=== PATIENT | female | born 1965 | race Two or more races ===

== ENCOUNTER 2017-10-26 11:09 | Inpatient (IN) | payer OTHER ==
[2017-10-26 11:40] VITALS: BMI 22.7
--- NOTE | 2017-10-26 13:39 | HP ---
CIWA Score - CIWA Score Nausea/Vomitin-Mild Nausea/No Vomiting Muscle Tremors: 4-Moderate,w/Arms Extend Anxiety: 4-Mod. Anxious/Guarded Agitation: 4-Moderately Restless Paroxysmal Sweats: 1-Minimal Palms Moist Orientation: 0-Oriented Tacttile Disturbances: 1-Very Mild Itch/Numbness Auditory Disturbances: 0-None Visual Disturbances: 0-None Headache: 2-Mild CIWA-Ar Total Score: 17 Admission ROS S - HPI Chief Complaint: withdrawal sx Allergies/Adverse Reactions: Allergies Allergy/AdvReac Type Severity Reaction Status Date / Time No Known Allergies Allergy Verified 10/26/17 12:14 History of Present Illness: 52 years old female with long history of alcohol xanax nicotine dependence has pulmonary sarcoridodisis and depression is admitted to detox Exam Limitations: No Limitations - Ebola screening Have you traveled outside of the country in the last 21 days: No Have you had contact with anyone from an Ebola affected area: No Have you been sick,other than usual withdrawal symptoms: No Do you have a fever: No - Review of Systems Constitutional: Changes in sleep, Weight Stable EENT: reports: Blurred Vision (eye glasses) Respiratory: reports: SOB with Exertion, Productive cough (greenish) Cardiac: reports: No Symptoms Reported GI: reports: Nausea, Poor Fluid Intake, Indigestion, Abdominal cramping : reports: No Symptoms Reported Musculoskeletal: reports: Back Pain, Joint Pain, Muscle Pain, Neck Pain Integumentary: reports: No Symptoms Reported Neuro: reports: Seizure (2012 xanax withdraal related), Tremors Endocrine: reports: No Symptoms Reported Hematology: reports: No Symptoms Reported Psychiatric: reports: Judgement Intact, Orientated x3, Depressed Other Systems: Reviewed and Negative Patient History - Patient Medical History Hx Anemia: No Hx Asthma: No Hx Chronic Obstructive Pulmonary Disease (COPD): Yes Hx Cancer: No Hx Cardiac Disorders: No Hx Congestive Heart Failure: No Hx Hypertension: No Hx Hypercholesterolemia: No Hx Pacemaker: No HX Cerebrovascular Accident: No Hx Seizures: Yes (2012) Hx Dementia: No Hx Diabetes: No Hx Gastrointestinal Disorders: Yes Hx Liver Disease: No Hx Genitourinary Disorders: No Hx Sexually Transmitted Disorders: Yes (syphyllis 1982) Hx Renal Disease (ESRD): No Hx Thyroid Disease: No Hx Human Immunodeficiency Virus (HIV): No Hx Hepatitis C: No Hx Depression: Yes Hx Suicide Attempt: Yes (last attempt was 2008, O/D on xanax) Hx Bipolar Disorder: No Hx Schizophrenia: No - Patient Surgical History Past Surgical History: Yes Hx Neurologic Surgery: No Hx Cataract Extraction: No Hx Cardiac Surgery: No Hx Lung Surgery: No Hx Breast Surgery: No Hx Breast Biopsy: No Hx Abdominal Surgery: No Hx Appendectomy: No Hx Cholecystectomy: No Hx Genitourinary Surgery: No Hx Section: No Hx Orthopedic Surgery: Yes (left tib and fib fracture 1986) Hx Hysterectomy: Yes (2015) Anesthesia Reaction: No - PPD History Previous Implant?: Yes (mar 2017) Documented Results: Negative w/o proof Implanted On Prior R Admission?: No PPD to be Administered?: Yes - Reproductive History Patient is a Female of Child Bearing Age (11 -55 yrs old): Yes Last Menstrual Period: 08/06/15 Patient : No - Smoking Cessation Smoking history: Current every day smoker Have you smoked in the past 12 months: Yes Aproximately how many cigarettes per day: 20 Cigars Per Day: 0 Hx Chewing Tobacco Use: No Initiated information on smoking cessation: Yes 'Breaking Loose' booklet given: 10/26/17 - Substance & Tx. History Hx Alcohol Use: Yes Hx Substance Use: Yes Substance Use Type: Alcohol, Tranquilizers Hx Substance Use Treatment: Yes (12/2016) - Substances Abused Alprazolam (Xanax) Route: Oral Frequency: Daily Amount used: 4-6 mg daily Age of first use: 40 Date of Last Use: 10/26/17 Alcohol Route: Oral Frequency: Daily Amount used: 1 oint daily ([facility]) Age of first use: 13 Date of Last Use: 10/26/17 Family Disease History - Family Disease History Family Disease History: [place]: Mother (), Other: Father (), Mother Admission Physical Exam [facility] - Vital Signs Vital Signs: Vital Signs - 24 hr 10/26/17 11:31 Temperature 97.1 F L Pulse Rate 82 Respiratory 20 Rate Blood Pressure 112/78 - Physical General Appearance: Yes: Nourished, Moderate Distress, Tremorous, Irritable, Sweating, Anxious HEENTM: Yes: Hearing grossly Normal, Normal ENT Inspection, Normocephalic, Normal Voice Respiratory: Yes: Chest Non-Tender, No Respiratory Distress, No Accessory Muscle Use, Wheezing, Inspiration Neck: Yes: Supple, Trachea in good position Breast: Yes: Breasts Symetrical, No Discharge Cardiology: Yes: Regular Rhythm, Regular Rate, S1, S2 Abdominal: Yes: Normal Bowel Sounds, Non Tender, Soft Genitourinary: Yes: Within Normal Limits Back: Yes: Normal Inspection Musculoskeletal: Yes: full range of Motion, Gait Steady, Back pain, Muscle Pain Extremities: Yes: Normal Inspection, Normal Range of Motion, Non-Tender, Tremors Neurological: Yes: Fully Oriented, Alert, Motor Strength 5/5, Normal Response, Depressed Affect Integumentary: Yes: Warm Lymphatic: Yes: Within Normal Limits - Diagnostic (1) Alcohol dependence with uncomplicated withdrawal Current Visit: Yes Status: Acute (2) Sedative, hypnotic or anxiolytic dependence with withdrawal, uncomplicated Current Visit: Yes Status: Acute (3) Pulmonary sarcoidosis Current Visit: Yes Status: Chronic (4) Nicotine dependence Current Visit: Yes Status: Acute Qualifiers: Nicotine product type: cigarettes Substance use status: in withdrawal Qualified Code(s): F17.213 - Nicotine dependence, cigarettes, with withdrawal (5) Dry skin dermatitis Current Visit: Yes Status: Chronic (6) GERD (gastroesophageal reflux disease) Current Visit: Yes Status: Chronic Qualifiers: Esophagitis presence: without esophagitis Qualified Code(s): K21.9 - Gastro -esophageal reflux disease without esophagitis (7) Depression (emotion) Current Visit: Yes Status: Suspected Qualifiers: Depression Type: dysthymia Qualified Code(s): F34.1 - Dysthymic disorder Cleared for Admission [facility] - Detox or Rehab [facility] Level of Care: Medically Managed Detox Regimen/Protocol: Valium [facility] Breath Alcohol Content Breath Alcohol Content: 0 Urine Pregancy Test - Result Urine Test Results: Negative- NO Line Present Urine Drug Screen - Results Drug Screen Negative: No Urine Drug Screen Results: AMP-Amphetamines, BZO-Benzodiazepines
[2017-10-26] MEDS ORDERED: MAG HYDROX/AL HYDROX/SIMETH 30 ML UNIT-DOSE CUP PO PRN (13:54)
[2017-10-26] MEDS ORDERED: LOPERAMIDE HCL 2 MG CAPSULE PO PRN (13:54)
[2017-10-26] MEDS ORDERED: P-EPHED 60MG/TRIPROLIDI 2.5MG TABLET PO PRN (13:54)
[2017-10-26] MEDS ORDERED: MAGNESIUM CITRATE 300 ML BOTTLE PO PRN (13:54)
[2017-10-26] MEDS ORDERED: guaiFENesin/D-METHORPHAN HB 10 ML UNIT-DOSE CUPS PO PRN (13:54)
[2017-10-26] MEDS ORDERED: diazePAM 5 MG TABLET PO PRN (13:54)
[2017-10-26] MEDS ORDERED: MAGNESIUM HYDROX 2400MG/30ML ORAL SUSPENSION 30 ML CUP PO PRN (13:54)
[2017-10-26] MEDS ORDERED: MENTHOL/PHENOL 1 EACH UD MM PRN (13:54)
[2017-10-26] MEDS ORDERED: ACETAMINOPHEN 325 MG TABLET (FP) PO PRN (13:54)
[2017-10-26] MEDS ORDERED: NICOTINE POLACRILEX 4 MG GUM BC PRN (13:54)
[2017-10-26] MEDS ORDERED: COLLOIDAL OATMEAL 1 BAR EACH TP PRN (14:00)
[2017-10-26] MEDS ORDERED: diazePAM 5 MG TABLET PO ONE (15:30)
[2017-10-26] MEDS: NICOTINE 21 MG/24 HOURS TOPICAL PATCH TD SCH (16:06)
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
[2017-10-26] MEDS ORDERED: MELATONIN 5 MG TABLETS PO PRN (22:00)
[2017-10-26] MEDS: THIAMINE HCL 100 MG TABLET (FP) PO SCH (22:48)
[2017-10-26] MEDS: RANITIDINE HCL 150 MG TABLET (FP) PO SCH (22:49)
[2017-10-26] MEDS: diazePAM 5 MG TABLET PO SCH (22:49)
[2017-10-26] MEDS: OLANZapine 10 MG TABLET PO SCH (22:50)
[2017-10-26] MEDS: MINERAL OIL/PETROLAT/WATER TOPICAL CREAM 113 GM JAR TP SCH (22:56)
[2017-10-27] MEDS: diazePAM 5 MG TABLET PO SCH ×3 (06:29→22:30)
--- NOTE | 2017-10-27 09:28 | EKG ---
Test Reason : Blood Pressure : / mmHG Vent. Rate : 068 BPM Atrial Rate : 068 BPM P-R Int : 154 ms QRS Dur : 080 ms QT Int : 414 ms P-R-T Axes : 062 068 058 degrees QTc Int : 440 ms NORMAL SINUS RHYTHM NORMAL ECG NO PREVIOUS ECGS AVAILABLE Confirmed by ELEAZAR ARRIETA, JANINA ([id number]) on 10/27/2017 9:28:20 AM Referred By: Confirmed By:JANINA BUSH MD
[2017-10-27 09:56] LABS: HEMATOCRIT 39.4 % (32.4-45.2); HEMOGLOBIN 13.4 GM/dL (10.7-15.3); MCH 30.5 pg (25.7-33.7); MCHC 34.1 g/dl (32.0-36.0); MEAN CELL VOLUME 89.4 fl (80-96); MEAN PLT VOLUME 9.5 fl (7.5-11.1); PLATELET COUNT 237 K/MM3 (134-434); RDW 12.8 % (11.6-15.6); WHITE BLOOD COUNT 5.4 K/mm3 (4.0-10.0)
[2017-10-27 10:05] LABS: CHLORIDE 106 mmol/L (98-107); POTASSIUM 3.8 mmol/L (3.5-5.1); SODIUM 142 mmol/L (136-145)
[2017-10-27 10:23] LABS: ALBUMIN 3.6 g/dl (3.4-5.0); ALK PHOS 48 U/L (45-117); ANION GAP 8 (8-16); BILIRUBIN,TOTAL 0.3 mg/dL (0.2-1.0); BLOOD UREA NITROGEN 12 mg/dL (7-18); CALCIUM 8.9 mg/dL (8.5-10.1); CO2 28 mmol/L (21-32); CREATININE 0.8 mg/dL (0.55-1.02); GLUCOSE,RANDOM 76 mg/dL (74-106); SGOT/AST 22 U/L (15-37); SGPT/ALT 26 U/L (12-78); TOT PROT 6.6 g/dl (6.4-8.2)
[2017-10-27] MEDS: NICOTINE 21 MG/24 HOURS TOPICAL PATCH TD SCH (11:17)
[2017-10-27] MEDS: PRENATAL VITAMINS W/ FOLIC ACID TABLET (FP) PO SCH (11:17)
[2017-10-27] MEDS: RANITIDINE HCL 150 MG TABLET (FP) PO SCH ×2 (11:18→22:31)
[2017-10-27] MEDS: TOPIRAMATE 25 MG TABLET (FP) PO SCH (11:18)
--- NOTE | 2017-10-27 11:49 | PN ---
S CIWA - CIWA Score Nausea/Vomitin-Mild Nausea/No Vomiting Muscle Tremors: 4-Moderate,w/Arms Extend Anxiety: 4-Mod. Anxious/Guarded Agitation: 4-Moderately Restless Paroxysmal Sweats: 1-Minimal Palms Moist Orientation: 0-Oriented Tacttile Disturbances: 1-Very Mild Itch/Numbness Auditory Disturbances: 0-None Visual Disturbances: 0-None Headache: 0-None Present CIWA-Ar Total Score: 15 BHS Progress Note (SOAP) Subjective: sweat tremor irritable restlessness anxiety trouble sleep at night Objective: 10/27/17 11:48 Vital Signs Temperature 97.3 F L 10/27/17 10:40 Pulse Rate 81 10/27/17 10:40 Respiratory Rate 18 10/27/17 10:40 Blood Pressure 101/70 10/27/17 10:40 O2 Sat by Pulse Oximetry (%) Laboratory Last Values WBC 5.4 K/mm3 (4.0-10.0) 10/27/17 06:10 RBC 4.40 M/mm3 (3.60-5.2) 10/27/17 06:10 Hgb 13.4 GM/dL (10.7-15.3) 10/27/17 06:10 Hct 39.4 % (32.4-45.2) 10/27/17 06:10 MCV 89.4 fl (80-96) 10/27/17 06:10 MCH 30.5 pg (25.7-33.7) 10/27/17 06:10 MCHC 34.1 g/dl (32.0-36.0) 10/27/17 06:10 RDW 12.8 % (11.6-15.6) 10/27/17 06:10 Plt Count 237 K/MM3 (134-434) 10/27/17 06:10 MPV 9.5 fl (7.5-11.1) 10/27/17 06:10 Sodium 142 mmol/L (136-145) 10/27/17 06:10 Potassium 3.8 mmol/L (3.5-5.1) 10/27/17 06:10 Chloride 106 mmol/L (98-107) 10/27/17 06:10 Carbon Dioxide 28 mmol/L (21-32) 10/27/17 06:10 Anion Gap 8 (8-16) 10/27/17 06:10 BUN 12 mg/dL (7-18) 10/27/17 06:10 Creatinine 0.8 mg/dL (0.55-1.02) 10/27/17 06:10 Creat Clearance w eGFR > 60 (>60) 10/27/17 06:10 Random Glucose 76 mg/dL (74-106) 10/27/17 06:10 Calcium 8.9 mg/dL (8.5-10.1) 10/27/17 06:10 Total Bilirubin 0.3 mg/dL (0.2-1.0) 10/27/17 06:10 AST 22 U/L (15-37) 10/27/17 06:10 ALT 26 U/L (12-78) 10/27/17 06:10 Alkaline Phosphatase 48 U/L (45-117) 10/27/17 06:10 Total Protein 6.6 g/dl (6.4-8.2) 10/27/17 06:10 Albumin 3.6 g/dl (3.4-5.0) 10/27/17 06:10 lab noted Assessment: 10/27/17 11:48 withdrawal sx Plan: continue detox
[2017-10-27] MEDS ORDERED: PNEUMOC 13-VAL CONJ-DIP CRM/PF 0.5 ML DISP.SYRIN IM ONE (12:00)
[2017-10-27 12:49] LABS: RPR REACTIVE 1:4 (NONREACTIVE)
[2017-10-27 14:18] LABS: TREPONEMA ANTIBODY REACTIVE (NONREACTIVE)
[2017-10-27 18:08] LABS: URINE APPEARANCE CLEAR; URINE BILIRUBIN NEGATIVE (<2.0 mg/dL); URINE COLOR YELLOW; URINE GLUCOSE (UA) NEGATIVE (NEGATIVE); URINE KETONE NEGATIVE (NEGATIVE); URINE LEUK ESTERASE NEGATIVE (NEGATIVE); URINE NITRITE NEGATIVE (NEGATIVE); URINE PROTEIN NEGATIVE (NEGATIVE); URINE UROBILINOGEN NEGATIVE mg/dL (0.2-1.0)
[2017-10-27] MEDS: THIAMINE HCL 100 MG TABLET (FP) PO SCH (22:30)
[2017-10-27] MEDS: OLANZapine 10 MG TABLET PO SCH (22:30)
[2017-10-27] MEDS: MINERAL OIL/PETROLAT/WATER TOPICAL CREAM 113 GM JAR TP SCH (22:32)
[2017-10-28] MEDS ORDERED: diazePAM 5 MG TABLET PO SCH (10:00)
--- NOTE | 2017-10-28 10:24 | PN ---
S CIWA - CIWA Score Nausea/Vomitin-Mild Nausea/No Vomiting Muscle Tremors: 3 Anxiety: 3 Agitation: 3 Paroxysmal Sweats: 1-Minimal Palms Moist Orientation: 0-Oriented Tacttile Disturbances: 1-Very Mild Itch/Numbness Auditory Disturbances: 0-None Visual Disturbances: 0-None Headache: 0-None Present CIWA-Ar Total Score: 12 BHS Progress Note (SOAP) Subjective: sweat tremor anxiety rpr + since teen, treated x 5+ with penicillin IM average level !:2 to 1:8 follow up with primary care physician throughout the adult tamayo Objective: 10/28/17 10:22 Vital Signs Temperature 98.6 F 10/28/17 09:59 Pulse Rate 77 10/28/17 09:59 Respiratory Rate 16 10/28/17 09:59 Blood Pressure 119/77 10/28/17 09:59 O2 Sat by Pulse Oximetry (%) Laboratory Last Values WBC 5.4 K/mm3 (4.0-10.0) 10/27/17 06:10 RBC 4.40 M/mm3 (3.60-5.2) 10/27/17 06:10 Hgb 13.4 GM/dL (10.7-15.3) 10/27/17 06:10 Hct 39.4 % (32.4-45.2) 10/27/17 06:10 MCV 89.4 fl (80-96) 10/27/17 06:10 MCH 30.5 pg (25.7-33.7) 10/27/17 06:10 MCHC 34.1 g/dl (32.0-36.0) 10/27/17 06:10 RDW 12.8 % (11.6-15.6) 10/27/17 06:10 Plt Count 237 K/MM3 (134-434) 10/27/17 06:10 MPV 9.5 fl (7.5-11.1) 10/27/17 06:10 Sodium 142 mmol/L (136-145) 10/27/17 06:10 Potassium 3.8 mmol/L (3.5-5.1) 10/27/17 06:10 Chloride 106 mmol/L (98-107) 10/27/17 06:10 Carbon Dioxide 28 mmol/L (21-32) 10/27/17 06:10 Anion Gap 8 (8-16) 10/27/17 06:10 BUN 12 mg/dL (7-18) 10/27/17 06:10 Creatinine 0.8 mg/dL (0.55-1.02) 10/27/17 06:10 Creat Clearance w eGFR > 60 (>60) 10/27/17 06:10 Random Glucose 76 mg/dL (74-106) 10/27/17 06:10 Calcium 8.9 mg/dL (8.5-10.1) 10/27/17 06:10 Total Bilirubin 0.3 mg/dL (0.2-1.0) 10/27/17 06:10 AST 22 U/L (15-37) 10/27/17 06:10 ALT 26 U/L (12-78) 10/27/17 06:10 Alkaline Phosphatase 48 U/L (45-117) 10/27/17 06:10 Total Protein 6.6 g/dl (6.4-8.2) 10/27/17 06:10 Albumin 3.6 g/dl (3.4-5.0) 10/27/17 06:10 Urine Color Yellow 10/26/17 12:00 Urine Appearance Clear 10/26/17 12:00 Urine pH 5.0 (5.0-8.0) 10/26/17 12:00 Ur Specific [place] 1.018 (1.001-1.035) 10/26/17 12:00 Urine Protein Negative (NEGATIVE) 10/26/17 12:00 Urine Glucose (UA) Negative (NEGATIVE) 10/26/17 12:00 Urine Ketones Negative (NEGATIVE) 10/26/17 12:00 Urine Blood Negative (NEGATIVE) 10/26/17 12:00 Urine Nitrite Negative (NEGATIVE) 10/26/17 12:00 Urine Bilirubin Negative (<2.0 mg/dL) 10/26/17 12:00 Urine Urobilinogen Negative mg/dL (0.2-1.0) 10/26/17 12:00 Ur Leukocyte Esterase Negative (NEGATIVE) 10/26/17 12:00 RPR Titer Reactive 1:4 (NONREACTIVE) H 10/27/17 06:10 T.pallidum Ab (MHA) Reactive (NONREACTIVE) 10/27/17 06:10 HIV 1&2 Antibody Screen Negative 10/26/17 06:00 HIV P24 Antigen Negative 10/26/17 06:00 lab noted syphilis health teaching provided patient wants printed out teaching material in chart given when discharge from detox facility 10/28/17 10:24 compared with 1:13 May 2017 patient considers one more treatment at the present time decision will be made by the patient from penicillin treatment Assessment: 10/28/17 10:26 withdrawal sx syphilis Plan: continue detox health teaching on syphilis
[2017-10-28] MEDS: PRENATAL VITAMINS W/ FOLIC ACID TABLET (FP) PO SCH (10:52)
[2017-10-28] MEDS: TOPIRAMATE 25 MG TABLET (FP) PO SCH (10:52)
[2017-10-28] MEDS: NICOTINE 21 MG/24 HOURS TOPICAL PATCH TD SCH (10:52)
[2017-10-28] MEDS: RANITIDINE HCL 150 MG TABLET (FP) PO SCH (10:52)
--- NOTE | 2017-10-28 13:37 | DS ---
[facility] Detox Discharge Summary Admission Date: 10/26/17 Discharge Date: 10/28/17 - History Present History: Alcohol Dependence Additional Comments: 52 years old female admiitted on 10/26/17 for alcohol withdrawal sx patient insists to terminate alcohol detox regimen wants fo leave the detox facility "things need to take care of" patient is alert oriented x 3 coherent steady gait agrees to [facility] denies suicidal denies homocidal no self destructive behavior health teaching on syphilis sacroidodis and alcohol addiction - Physical Exam Results Vital Signs: Vital Signs Temperature 98.6 F 10/28/17 09:59 Pulse Rate 77 10/28/17 09:59 Respiratory Rate 16 10/28/17 09:59 Blood Pressure 119/77 10/28/17 09:59 O2 Sat by Pulse Oximetry (%) Pertinent Admission Physical Exam Findings: withdrawal sx Vital Signs Temperature 98.6 F 10/28/17 09:59 Pulse Rate 77 10/28/17 09:59 Respiratory Rate 16 10/28/17 09:59 Blood Pressure 119/77 10/28/17 09:59 O2 Sat by Pulse Oximetry (%) Laboratory Last Values WBC 5.4 K/mm3 (4.0-10.0) 10/27/17 06:10 RBC 4.40 M/mm3 (3.60-5.2) 10/27/17 06:10 Hgb 13.4 GM/dL (10.7-15.3) 10/27/17 06:10 Hct 39.4 % (32.4-45.2) 10/27/17 06:10 MCV 89.4 fl (80-96) 10/27/17 06:10 MCH 30.5 pg (25.7-33.7) 10/27/17 06:10 MCHC 34.1 g/dl (32.0-36.0) 10/27/17 06:10 RDW 12.8 % (11.6-15.6) 10/27/17 06:10 Plt Count 237 K/MM3 (134-434) 10/27/17 06:10 MPV 9.5 fl (7.5-11.1) 10/27/17 06:10 Sodium 142 mmol/L (136-145) 10/27/17 06:10 Potassium 3.8 mmol/L (3.5-5.1) 10/27/17 06:10 Chloride 106 mmol/L (98-107) 10/27/17 06:10 Carbon Dioxide 28 mmol/L (21-32) 10/27/17 06:10 Anion Gap 8 (8-16) 10/27/17 06:10 BUN 12 mg/dL (7-18) 10/27/17 06:10 Creatinine 0.8 mg/dL (0.55-1.02) 10/27/17 06:10 Creat Clearance w eGFR > 60 (>60) 10/27/17 06:10 Random Glucose 76 mg/dL (74-106) 10/27/17 06:10 Calcium 8.9 mg/dL (8.5-10.1) 10/27/17 06:10 Total Bilirubin 0.3 mg/dL (0.2-1.0) 10/27/17 06:10 AST 22 U/L (15-37) 10/27/17 06:10 ALT 26 U/L (12-78) 10/27/17 06:10 Alkaline Phosphatase 48 U/L (45-117) 10/27/17 06:10 Total Protein 6.6 g/dl (6.4-8.2) 10/27/17 06:10 Albumin 3.6 g/dl (3.4-5.0) 10/27/17 06:10 Urine Color Yellow 10/26/17 12:00 Urine Appearance Clear 10/26/17 12:00 Urine pH 5.0 (5.0-8.0) 10/26/17 12:00 Ur Specific [place] 1.018 (1.001-1.035) 10/26/17 12:00 Urine Protein Negative (NEGATIVE) 10/26/17 12:00 Urine Glucose (UA) Negative (NEGATIVE) 10/26/17 12:00 Urine Ketones Negative (NEGATIVE) 10/26/17 12:00 Urine Blood Negative (NEGATIVE) 10/26/17 12:00 Urine Nitrite Negative (NEGATIVE) 10/26/17 12:00 Urine Bilirubin Negative (<2.0 mg/dL) 10/26/17 12:00 Urine Urobilinogen Negative mg/dL (0.2-1.0) 10/26/17 12:00 Ur Leukocyte Esterase Negative (NEGATIVE) 10/26/17 12:00 RPR Titer Reactive 1:4 (NONREACTIVE) H 10/27/17 06:10 T.pallidum Ab (MHA) Reactive (NONREACTIVE) 10/27/17 06:10 HIV 1&2 Antibody Screen Negative 10/26/17 06:00 HIV P24 Antigen Negative 10/26/17 06:00 lab noted - Treatment Hospital Course: Detox Protocol Followed, Responded well Patient has Accepted a Rehab Referral to: [facility] - Medication Discharge Medications: Ambulatory Orders Olanzapine [ZyPREXA -] 10 mg PO DAILY 10/26/17 Topiramate [Topamax -] 100 mg PO DAILY 10/26/17 Ventolin HFA Inhaler - 10/26/17 - Diagnosis (1) Alcohol dependence with uncomplicated withdrawal Current Visit: Yes Status: Acute (2) Sedative, hypnotic or anxiolytic dependence with withdrawal, uncomplicated Current Visit: Yes Status: Acute (3) Pulmonary sarcoidosis Current Visit: Yes Status: Chronic (4) Nicotine dependence Current Visit: Yes Status: Acute Qualifiers: Nicotine product type: cigarettes Substance use status: in withdrawal Qualified Code(s): F17.213 - Nicotine dependence, cigarettes, with withdrawal (5) Dry skin dermatitis Current Visit: Yes Status: Chronic (6) GERD (gastroesophageal reflux disease) Current Visit: Yes Status: Chronic Qualifiers: Esophagitis presence: without esophagitis Qualified Code(s): K21.9 - Gastro -esophageal reflux disease without esophagitis (7) Depression (emotion) Current Visit: Yes Status: Suspected Qualifiers: Depression Type: dysthymia Qualified Code(s): F34.1 - Dysthymic disorder - AMA Did Patient Leave Against Medical Advice: Yes
[2017-10-28 14:28] VITALS: BP 117/78; PULSE 97; TEMP 99
[2017-10-28] MEDS ORDERED: OLANZapine 5 MG TABLET PO SCH (22:00)
[2017-10-30] MEDS ORDERED: diazePAM 5 MG TABLET PO SCH (10:00)
== END 2017-10-28 13:28 | disposition left against medical advice (07) | DRG 894 ==
LOC: YASAS 11:09 → Y6N 14:44
PROVIDERS: ADMIT Internal Medicine; ATTEND Internal Medicine
PROC: HZ2ZZZZ Detoxification Services for Substance Abuse Treatment (ICD-10-PCS; principal; 2017-10-26)
DX: F13.230 Sedative, hypnotic or anxiolytic dependence with withdrawal, uncomplicated (principal); F10.230 Alcohol dependence with withdrawal, uncomplicated; F17.210 Nicotine dependence, cigarettes, uncomplicated; F34.1 Dysthymic disorder; F39 Unspecified mood [affective] disorder; L85.3 Xerosis cutis; K21.9 Gastro-esophageal reflux disease without esophagitis; Z86.19 Personal history of other infectious and parasitic diseases; Z91.5 Personal history of self-harm; D86.0 Sarcoidosis of lung
CPT/HCPCS: 36415; 80053; 81003; 85027; 86593; 86780; 87389; 93005; 93010